=== PATIENT | male | born 1990 | race Caucasian/White ===

== ENCOUNTER 2018-05-24 16:50 | Emergency (ER) | payer OTHER ==
--- NOTE | 2018-05-24 17:14 | EDPHY ---
H & P Stated Complaint: lac to l eyebrow/ran into door at work Source: Patient Exam Limitations: No limitations - Personal History Current Tetanus Diphtheria and Acellular Pertussis (TDAP): Yes - Medical/Surgical History Hx Asthma: No Hx Chronic Respiratory Disease: No Hx Diabetes: No Hx Cardiac Disease: No Hx Renal Disease: No Hx Cirrhosis: No Hx Alcoholism: No Hx HIV/AIDS: No Hx Splenectomy or Spleen Trauma: No Other PMH: hearing loss - Social History Smoking Status: Never smoked Time Seen by Provider: 05/24/18 17:10 HPI/ROS: HPI: This is a 27-year-old male who presents with Chief Complaint: lac to l eyebrow/ran into door at work Location: Left eyebrow Quality: Injury Duration: 1 hr prior to arrival Signs and Symptoms: No bleeding, no radiation, no numbness, no weakness, no tingling, no incontinence, no decreased range of motion, no swelling, no pain, no fever Timing: Acute Severity: Mild Context: 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 Denies LOC/head injury/neck pain/dizziness/nausea/vomiting/ amnesia. He reports that he felt mild, constant, nonradiating pain but that has quickly resolved. He is ambulatory without any deficits. He applied direct pressure and the bleeding stopped. Reports tetanus is current. Has a history of a concussion in the remote past. Modifying Factors: See above Comment: ROS: A comprehensive 10 system review of systems is otherwise negative aside from elements mentioned in the history of present illness. MEDICAL/SURGICAL/SOCIAL HISTORY: Medical history: Hearing loss. Does not take any regular medications. Surgical history: Denies Social history: Never smoked. CONSTITUTIONAL: Polite and cooperative, adult white male, awake and alert, no obvious distress HEENT: 2.5 cm, vertical, superficial laceration through the left lateral portion of the eyebrow. and normocephalic. NECK: supple, no midline tenderness, flexion 45 degrees, extension 45 degrees, right and left lateral flexion 45 degrees. No meningismus. EXTREMITIES: 2/2 pulses, strength 5/5, DIP/PIP/MCP flexion/extension intact with good light touch sensation. no deformities, no clubbing, no cyanosis or edema. NEUROLOGICAL: no focal neuro deficits. GCS 15. Light touch sensation intact. SKIN: Warm and dry, no erythema. no rash. Good capillary refill. (Nicole Joyce) Constitutional: Initial Vital Signs Temperature (C) 36.6 C 05/24/18 16:54 Heart Rate 59 L 05/24/18 16:54 Respiratory Rate 17 05/24/18 16:54 Blood Pressure 113/89 H 05/24/18 16:54 O2 Sat (%) 99 05/24/18 16:54 O2 Delivery Mode Room Air Allergies/Adverse Reactions: No Known Allergies Allergy (Unverified 05/24/18 16:54) Home Medications: Medication Instructions Recorded NK [No Known Home Meds] 05/24/18 Medical Decision Making Procedures: Procedure: Laceration repair. Verbal consent was obtained from the patient. The 2.5 cm, superficial, vertical , simple laceration on the left eyebrow was anesthetized in the usual fashion using 3 mL of 1% lidocaine with epinephrine. The wound was irrigated, draped and explored to its base with a gloved finger. There were no deep structures involved. No tendon injury was identified. The wound was repaired with #3, 5- 0 Prolene. Good hemostasis was achieved and patient tolerated procedure well. Steri-Strips applied. The procedure was performed by myself. (Nicole Joyce) ED Course/Re-evaluation: Tetanus is current. Local anesthesia provided, irrigated copiously, laceration repaired with nonabsorbable sutures Based on nexus protocol head CT imaging not indicated. No signs of neurovascular compromise/tenting of skin/compartment syndrome/ extremities and joints examined above and below area of concern and are neurovascularly intact/concussion. Verbal and written wound care instructions provided to the patient. This patient was seen under the supervision of my secondary supervising physician. I evaluated care for this patient independently. Discussed this patient with Dr. Tripp. (Nicole Joyce) The patient was evaluated and managed by the physician assistant gm of content & delivery. I have reviewed this chart and I agree with the findings and plan of care as documented , as indicated by my signature. I am the secondary supervising physician. ( Jennifer Tripp) Differential Diagnosis: Head injury including but not limited to concussion, skull fracture, intraparenchymal contusion, subarachnoid, subdural and epidural hematoma. (Nicole Joyce) Departure - Departure Disposition: Home, Routine, Self-Care Clinical Impression: Laceration of left eyebrow without complication Condition: Good Instructions: Care For Your Stitches (ED), Laceration (ED), Head Injury (ED) Additional Instructions: Keep the laceration/Steri-Strips dry for 48 hours. After 48 hours, you may wash the site daily with soap and water; then pat dry. Allow Steri-Strips to fall off on their own in approximately 3-5 days. Take Tylenol 650 mg every 4 hours and/or Ibuprofen 600 mg every 8 hours with food as needed for pain/headache. Wound Care Follow-Up: Removal of sutures in [5-7] days. Suture removal is complimentary in uncomplicated cases. Infection or abnormal findings would require reevaluation by the MD. In that case, you may be billed. Return to the ER immediately if you have progressive headaches, neurologic deficits, gait abnormality, visual disturbance, slurred speech, or any other symptom that concerns you. Referrals: PCP Not In,Dictionary [Medical Doctor] - As per Instructions [facility] [place],. [Clinic] - As per Instructions
[2018-05-24 17:37] VITALS: BP 110/80
== END 2018-05-24 17:37 | disposition home or self-care (01) ==
PROC: 0HQ1XZZ Repair Face Skin, External Approach (ICD-10-PCS; principal; 2018-05-24)
DX: S01.112A Laceration without foreign body of left eyelid and periocular area, initial encounter (principal); W22.09XA Striking against other stationary object, initial encounter; Y92.538 Other ambulatory health services establishments as the place of occurrence of the external cause; Y99.0 Civilian activity done for income or pay